=== PATIENT | male | born 1980 | race Hispanic/Latino ===

== ENCOUNTER 2016-12-02 01:10 | Emergency (ER) | payer OTHER ==
[~2016-12-02] VITALS: Ht 193 cm; Wt 90.7 kg
--- NOTE | 2016-12-02 01:24 | NUR ---
home meds pt denies any home meds on a daily basis
--- NOTE | 2016-12-02 01:31 | ER.PDOC ---
General Chief Complaint: General Complaint Stated Complaint: BLISTERS ON FEET TRAVEL OUT OF US: No Time seen by MD: 01:29 Source: patient History of Present Illness Timing/Duration: 1 week Severity: mild Associated Symptoms: denies symptoms Allergies: Coded Allergies: meloxicam (Verified Allergy, Unknown, 12/02/16) Past Medical History Medical History: no pertinent history Surgical History: no surgical history Social History Smoking: non-smoker Alcohol Use: none Drug Use: none Review of Systems All Other Systems: Reviewed and Negative Physical Exam General Appearance: No Apparent Distress EENT: eyes nml inspection Neck: Non-Tender Respiratory: chest non-tender CVS: reg rate & rhythm Gastrointestinal: Normal Bowel Sounds Comments blister on sole of foot Progress Progress dressing placed Departure Time of Disposition: 01:54 Disposition: 01 HOME, SELF-CARE Impression: Primary Impression: Blister Condition: Stable Referrals: PCP,UNKNOWN (PCP) PRIMARY CARE PROVIDER Additional Instructions: get mole skin from [facility] and apply to blisters HAMIDA FREDERICK Dr[address] MD Dec 02, 2016 01:31
--- NOTE | 2016-12-02 01:43 | NUR ---
DISCHARGE DRESSING TO BILATERAL FEET, DISCHARGE INSTRUCTIONS DISCUSSED. PT VERBALIZED UNDERSTANDING. ENCOURAGED TO RETURN FOR ANY CONCERNS.
== END 2016-12-02 01:43 | disposition home or self-care (01) ==
LOC: ER 01:10
DX: S90.829A Blister (nonthermal), unspecified foot, initial encounter (principal); Z88.8 Allergy status to other drugs, medicaments and biological substances; X58.XXXA Exposure to other specified factors, initial encounter; Y93.89 Activity, other specified; Y92.89 Other specified places as the place of occurrence of the external cause; Y99.8 Other external cause status
CPT/HCPCS: 99282